=== PATIENT | female | born 1980 | race Caucasian/White ===

== ENCOUNTER 2018-04-30 10:25 | Outpatient (CLI) | payer OTHER ==
[~2018-04-30 10:25] MED LIST: DECADRON P4 MG/ML-1M IH; FLEXERIL10 MG PO; FLONASE16 GM NS; GILTUSS TR TAB1 EACH PO; TESSALON PERLE100 MG PO; TOBREX5 ML OP; TORADOL60 MG IM; VOLTAREM 50 MG PO; ZYRTEC10 MG PO
== END 2018-04-30 10:41 | disposition home or self-care (01) ==
LOC: LAB 10:25
DX: Z00.01 Encounter for general adult medical examination with abnormal findings (principal)

== ENCOUNTER → 2018-05-29 | Outpatient (CLI) | payer OTHER | END | disposition home or self-care (01) | LOC: MAMO-SONO 05-27 09:15 → SONOGRAMA 09:44 → MAMO-SONO 09:45 | DX: R10.84 Generalized abdominal pain (principal) ==

== ENCOUNTER 2018-07-15 10:41 | Outpatient (CLI) | payer OTHER | END 2018-07-15 10:55 | disposition home or self-care (01) | LOC: LAB 10:41 | DX: D51.3 Other dietary vitamin B12 deficiency anemia (principal); D51.1 Vitamin B12 deficiency anemia due to selective vitamin B12 malabsorption with proteinuria; E80.4 Gilbert syndrome; D73.89 Other diseases of spleen; D50.8 Other iron deficiency anemias; D51.8 Other vitamin B12 deficiency anemias; D51.0 Vitamin B12 deficiency anemia due to intrinsic factor deficiency; D55.0 Anemia due to glucose-6-phosphate dehydrogenase [G6PD] deficiency; E06.3 Autoimmune thyroiditis; E03.8 Other specified hypothyroidism; R97.0 Elevated carcinoembryonic antigen [CEA] ==

== ENCOUNTER 2018-08-03 09:51 | Outpatient (CLI) | payer OTHER | END 2018-08-03 10:07 | disposition home or self-care (01) | LOC: LAB 09:51 | DX: J11.1 Influenza due to unidentified influenza virus with other respiratory manifestations (principal); J06.9 Acute upper respiratory infection, unspecified ==

== ENCOUNTER 2018-10-28 11:00 | Outpatient (CLI) | payer OTHER | END 2018-10-28 11:43 | disposition home or self-care (01) | LOC: SONOGRAMA 11:00 → MAMO-SONO 11:15 → SONOGRAMA 11:43 | DX: D51.3 Other dietary vitamin B12 deficiency anemia (principal); D51.1 Vitamin B12 deficiency anemia due to selective vitamin B12 malabsorption with proteinuria; E80.4 Gilbert syndrome; D73.89 Other diseases of spleen ==

== ENCOUNTER → 2018-10-28 11:21 | Outpatient (CLI) | payer OTHER | END | disposition home or self-care (01) | LOC: LAB 11:21 | DX: D51.3 Other dietary vitamin B12 deficiency anemia (principal); D51.1 Vitamin B12 deficiency anemia due to selective vitamin B12 malabsorption with proteinuria; E80.4 Gilbert syndrome; D73.89 Other diseases of spleen; D50.8 Other iron deficiency anemias; D51.8 Other vitamin B12 deficiency anemias; I10 Essential (primary) hypertension; E03.8 Other specified hypothyroidism; R97.0 Elevated carcinoembryonic antigen [CEA] ==

== ENCOUNTER 2018-12-04 12:36 | Outpatient (CLI) | payer OTHER | END 2018-12-04 12:46 | disposition home or self-care (01) | LOC: LAB 12:36 | DX: R10.13 Epigastric pain (principal); R10.84 Generalized abdominal pain; R10.9 Unspecified abdominal pain ==

== ENCOUNTER 2018-12-05 08:50 | Outpatient (CLI) | payer OTHER | END 2018-12-05 09:14 | disposition home or self-care (01) | LOC: TOM 08:50 | DX: R10.84 Generalized abdominal pain (principal); R10.13 Epigastric pain ==

== ENCOUNTER 2019-01-20 09:05 | Outpatient (CLI) | payer OTHER | END 2019-01-20 09:13 | disposition home or self-care (01) | LOC: LAB 09:05 | DX: D51.3 Other dietary vitamin B12 deficiency anemia (principal); D51.1 Vitamin B12 deficiency anemia due to selective vitamin B12 malabsorption with proteinuria; E80.4 Gilbert syndrome; D73.89 Other diseases of spleen; D50.8 Other iron deficiency anemias; D51.8 Other vitamin B12 deficiency anemias; B20 Human immunodeficiency virus [HIV] disease; B18.8 Other chronic viral hepatitis; B27.90 Infectious mononucleosis, unspecified without complication ==

== ENCOUNTER 2019-03-02 17:07 | Outpatient (CLI) | payer OTHER | END 2019-03-02 17:10 | disposition home or self-care (01) | LOC: RAD 17:07 | DX: M54.5 Low back pain (principal) ==

== ENCOUNTER 2019-05-28 11:35 | Outpatient (CLI) | payer OTHER | END 2019-05-28 15:00 | disposition home or self-care (01) | LOC: LAB 11:35 | DX: D51.3 Other dietary vitamin B12 deficiency anemia (principal); D51.1 Vitamin B12 deficiency anemia due to selective vitamin B12 malabsorption with proteinuria; E80.4 Gilbert syndrome; D73.89 Other diseases of spleen; D50.8 Other iron deficiency anemias; D51.8 Other vitamin B12 deficiency anemias; I10 Essential (primary) hypertension; R97.0 Elevated carcinoembryonic antigen [CEA]; E55.9 Vitamin D deficiency, unspecified ==

== ENCOUNTER 2019-07-02 16:34 | Outpatient (CLI) | payer OTHER | END 2019-07-02 17:42 | disposition home or self-care (01) | LOC: LAB 16:34 | DX: J11.1 Influenza due to unidentified influenza virus with other respiratory manifestations (principal); R05 Cough ==

== ENCOUNTER 2020-03-06 07:15 | Outpatient (CLI) | payer OTHER | END 2020-03-06 07:24 | disposition home or self-care (01) | LOC: MRI 07:15 | PROVIDERS: ATTEND Physical Medicine & Rehabilitation | DX: M54.5 Low back pain (principal); M54.17 Radiculopathy, lumbosacral region | CPT/HCPCS: 72148 ==

== ENCOUNTER → 2020-04-10 | Outpatient (CLI) | payer OTHER | END | disposition home or self-care (01) | LOC: PPH VACUNA 09:00 | DX: Z23 Encounter for immunization (principal) ==